=== PATIENT | female | born 1945 | race African-American/Black ===

== ENCOUNTER 2017-01-19 14:03 | Observation (INO) | payer MEDICARE ==
[~2017-01-19] VITALS: Ht 170.2 cm; Wt 62.6 kg
[2017-01-19] MEDS ORDERED: NITROGLYCERIN OINT 1GM/INCH UDPKT TD ONE (15:00)
[2017-01-19] MEDS ORDERED: ASPIRIN 81MG TABLET PO ONE (15:00)
[2017-01-19 15:33] LABS: BASOPHILS % 0.4 % (0.0-2.0); DIFFERENTIAL COMMENT 0; EOSINOPHILS % 0.4 % (0.0-5.0); HEMATOCRIT. 38.2 % (36.0-48.0); HEMOGLOBIN. 12.5 g/dL (12.0-16.0); LYMPHOCYTES % 25.5 % (20.0-50.0); MEAN CORPUSCULAR HEMOGLOBIN 25.8 pg (28.0-32.0); MEAN CORPUSCULAR HGB CONC 32.8 g/dL (31.0-37.0); MEAN CORPUSCULAR VOLUME 78.5 fL (81.0-99.0); MEAN PLATELET VOLUME 8.8 fl (7.4-10.4); MONOCYTES % 9.9 % (2.0-8.0); NEUTROPHILS % 63.8 % (40.0-76.0); PLATELET 292 x1000/uL (130-400); RED BLOOD CELL COUNT 4.86 mill/uL (4.2-5.4); RED CELL DISTRIBUTION WIDTH 15.7 % (11.6-14.6); WHITE BLOOD COUNT 11.2 x1000/uL (4.5-11.0)
[2017-01-19 15:34] LABS: PROTHROMBIN TIME 10.9 sec
[2017-01-19 15:37] LABS: ANION GAP 10; CARBON DIOXIDE 32 mEq/L (21-32); CHLORIDE 101 mEq/L (98-107); UREA NITROGEN BLOOD 13 mg/dL (7-21)
[2017-01-19 15:38] LABS: ALANINE AMINOTRANSFERASE 28 IU/L (13-61); ALBUMIN 3.3 g/dL (3.4-5.0); CALCIUM 8.9 mg/dL (8.5-10.1); INDEX HEMOLYSI 1 (1-3); INDEX ICTERIC 1 (1-4); INDEX LIPEMIC 1 (1-3); LIPASE 113 IU/L (73-393); eGFR > 60 mL/min (>60)
[2017-01-19 15:41] LABS: NT PRO B-TYPE NATRIURETIC PEP 198 pg/mL (5-125); TROPONIN I 0.02 ng/mL (0.00-0.04)
[2017-01-19] MEDS ORDERED: POTASSIUM CHLORIDE 20MEQ TABLET SR PO ONE (15:45)
[2017-01-19 21:00] VITALS: BP 157/83
[2017-01-19] MEDS ORDERED: BACL-141 PO (21:38)
[2017-01-19] MEDS ORDERED: RANI-84 PO (21:38)
[2017-01-19] MEDS ORDERED: AMLO10TA80 PO (21:38)
[2017-01-19] MEDS ORDERED: ASPI-1035 PO (21:38)
[2017-01-19] MEDS ORDERED: HYDR25TA PO (21:38)
[2017-01-19] MEDS ORDERED: MELO15TA13 PO (21:38)
[2017-01-19] MEDS ORDERED: ACETAMINOPHEN 325MG TABLET PO PRN (22:15)
[2017-01-19] MEDS ORDERED: TEMAZEPAM 15MG CAPSULE PO PRN (22:15)
[2017-01-19] MEDS ORDERED: KRILL OIL PO (22:28)
[2017-01-19] MEDS ORDERED: OLOP2.5D EACHEYE (22:28)
[2017-01-19] MEDS ORDERED: CYCL30DR EACHEYE (22:28)
[2017-01-19] MEDS ORDERED: LIDO30CR TP (22:28)
[2017-01-19] MEDS ORDERED: TRIA15OI8 TP (22:28)
[2017-01-19] MEDS ORDERED: STOOL SOFTENER PO (22:28)
[2017-01-19] MEDS ORDERED: GUAI1TBM14 PO (22:28)
[2017-01-19] MEDS ORDERED: BACLOFEN 10MG TABLET PO PRN (22:30)
[2017-01-19] MEDS ORDERED: MEDICATION NOT ON FORMULARY EA (Cyclosporine (Restasis) 1 DROP) EACHEYE SCH (22:30)
[2017-01-19] MEDS ORDERED: TRIAMCINOLONE ACETONIDE 0.5% OINT 15GM TOP PRN (22:30)
[2017-01-19] MEDS ORDERED: AMLODIPINE 10MG TABLET PO SCH (22:45)
[2017-01-19] MEDS ORDERED: DOCUSATE SODIUM 100MG CAPSULE PO PRN (22:45)
[2017-01-20] VITALS: BP 141/79
[2017-01-20 00:01] LABS: CREATINE KINASE MB FRACTION 0.6 ng/mL (0.5-3.6); TROPONIN I 0.02 ng/mL (0.00-0.04)
[2017-01-20 04:00] VITALS: BP 124/72
[2017-01-20 06:27] LABS: BASOPHILS % 0.4 % (0.0-2.0); DIFFERENTIAL COMMENT 0; EOSINOPHILS % 0.7 % (0.0-5.0); HEMATOCRIT. 39.8 % (36.0-48.0); HEMOGLOBIN. 13.3 g/dL (12.0-16.0); LYMPHOCYTES % 26.3 % (20.0-50.0); MEAN CORPUSCULAR HEMOGLOBIN 26.2 pg (28.0-32.0); MEAN CORPUSCULAR HGB CONC 33.4 g/dL (31.0-37.0); MEAN CORPUSCULAR VOLUME 78.6 fL (81.0-99.0); NEUTROPHILS % 61.6 % (40.0-76.0); PLATELET 304 x1000/uL (130-400); RED BLOOD CELL COUNT 5.07 mill/uL (4.2-5.4); WHITE BLOOD COUNT 10.6 x1000/uL (4.5-11.0)
[2017-01-20] MEDS ORDERED: OMEPRAZOLE 20MG CAPSULE EXTENDED RELEASE PO SCH (06:45)
[2017-01-20 06:55] LABS: ANION GAP 11; CALCIUM 8.9 mg/dL (8.5-10.1); CARBON DIOXIDE 30 mEq/L (21-32); CHLORIDE 104 mEq/L (98-107); INDEX HEMOLYSI 1 (1-3); INDEX ICTERIC 1 (1-4); INDEX LIPEMIC 1 (1-3); LDL CHOLESTEROL 112 mg/dL (5-100); TRIGLYCERIDE 128 mg/dL (0-150); UREA NITROGEN BLOOD 11 mg/dL (7-21)
[2017-01-20 07:02] LABS: CREATINE KINASE 79 IU/L (26-192); HDL CHOLESTEROL 79 mg/dL (40-59); TROPONIN I 0.02 ng/mL (0.00-0.04); eGFR > 60 mL/min (>60)
[2017-01-20 08:00] VITALS: BP 138/75
[2017-01-20] MEDS ORDERED: HYDROCHLOROTHIAZIDE 25MG TABLET PO SCH (09:00)
[2017-01-20] MEDS ORDERED: GUAIFENESIN/DM 600MG/30MG ER TAB 12HR PO PRN (09:00)
[2017-01-20] MEDS ORDERED: ENOXAPARIN 40MG/0.4ML SYR SUBCUT SCH (09:00)
[2017-01-20] MEDS ORDERED: NAPHAZOLINE HCL/PHENIR MAL OPHTH SOLN 15ML OP SCH (09:00)
[2017-01-20] MEDS ORDERED: POTASSIUM CHLORIDE 20MEQ TABLET SR PO SCH (09:00)
[2017-01-20] MEDS ORDERED: ASPIRIN 81MG EC TABLET PO SCH (09:00)
[2017-01-20] MEDS ORDERED: LIDOCAINE/PRILOCAINE CREAM 5 GM TUBE TOP PRN (09:00)
[2017-01-20 12:00] VITALS: BP 145/88
[2017-01-20] MEDS ORDERED: REGADENOSON 0.4 MG/5 ML IV SCH (12:45)
[2017-01-20] MEDS ORDERED: REGADENOSON 0.4 MG/5 ML IV ONE (13:33)
[2017-01-20] MEDS ORDERED: POLYVINYL ALCOHOL OPHTH DROPS 15ML OP PRN (14:00)
[2017-01-20 15:13] VITALS: BP 145/88
[2017-01-20] MEDS ORDERED: AMLODIPINE 10MG TABLET PO SCH (17:00)
[2017-01-20] MEDS ORDERED: ATORVASTATIN CALCIUM 10MG TABLET PO SCH (21:00)
== END 2017-01-20 15:35 | disposition home or self-care (01) ==
LOC: ER 15:42 → INTOOBSV 21:34 → 5WST 21:34
PROVIDERS: ADMIT Internal Medicine; ATTEND Internal Medicine
DX: R07.89 Other chest pain (principal); I10 Essential (primary) hypertension; E78.5 Hyperlipidemia, unspecified
CPT/HCPCS: 36415; 71010; 78452; 80048; 80053; 80061; 82550; 82553; 83690; 83880; 84443; 84484; 85025; 85610; 93005; 93017; 93306; 96372; 99285; A9500; G0378; J1650; J2785

== ENCOUNTER 2024-05-11 11:24 | Inpatient (IN) | payer MEDICAID, MEDICARE ==
[~2024-05-11] VITALS: Ht 167.6 cm; Wt 33.6 kg
[~2024-05-11 11:24] MED LIST: AMLO10TA80 PO; ASPI-1497 PO; BACL-141 PO; CYCL30DR EACHEYE; GUAI1TBM14 PO; HYDR25TA PO; KRILL OIL PO; LIDO30CR TP; MELO15TA13 PO; OLOP2.5D12 EACHEYE; RANI-655 PO; STOOL SOFTENER PO; TRIA15OI8 TP
[2024-05-11 12:01] LABS: HEMATOCRIT. 37.7 % (36.0-48.0); HEMOGLOBIN. 12.4 g/dL (12.0-16.0); MEAN CORPUSCULAR HEMOGLOBIN 26.2 pg (28.0-32.0); MEAN CORPUSCULAR HGB CONC 32.8 g/dL (31.0-37.0); MEAN CORPUSCULAR VOLUME 79.7 fL (81.0-99.0); MEAN PLATELET VOLUME 9.3 fl (7.4-10.4); PLATELET 364 x1000/uL (130-400); RED BLOOD CELL COUNT 4.73 mill/uL (4.2-5.4); RED CELL DISTRIBUTION WIDTH 16.7 % (11.6-14.6); WHITE BLOOD COUNT 30.3 x1000/uL (4.5-11.0)
[2024-05-11 12:08] LABS: CHLORIDE 96 mEq/L (98-107); POTASSIUM 3.1 mEq/L (3.5-5.1); SODIUM 127 mEq/L (136-145)
[2024-05-11 12:10] LABS: CARBON DIOXIDE 22 mEq/L (21-32)
[2024-05-11 12:15] LABS: CREATININE 1.8 mg/dL (0.6-1.0); GLUCOSE 119 mg/dL (70-105); UREA NITROGEN BLOOD 29 mg/dL (9-23)
[2024-05-11 12:16] LABS: ALANINE AMINOTRANSFERASE 22 IU/L (10-49); ASPARTATE AMINOTRANSFERASE 33 IU/L (<34)
[2024-05-11 12:17] LABS: ALBUMIN 4.1 g/dL (3.2-4.8); BILIRUBIN DIRECT 0.2 mg/dL (<=3.0); BILIRUBIN TOTAL 0.5 mg/dL (0.1-1.0); PROTEIN TOTAL 7.8 g/dL (6.0-8.3)
[2024-05-11 12:24] LABS: DIFFERENTIAL COMMENT 1
[2024-05-11] MEDS ORDERED: PIPERACILLIN/TAZO 3.375G/50ML 50 ML IV ONE (12:30)
[2024-05-11] MEDS: SODIUM CHLORIDE 0.9% 1000ML BAG (SEPSIS BOLUS) IV ONE (12:30)
[2024-05-11] MEDS: SODIUM CHLORIDE 0.9% 1,000 ML IV ONE (12:59)
[2024-05-11 13:04] LABS: PLATELET ESTIMATE NORMAL
[2024-05-11 13:05] LABS: ANISOCYTOSIS 1+; MICROCYTOSIS 1+
[2024-05-11] MEDS: VANCOMYCIN 1G PREMIX 200 ML IV ONE (13:05)
[2024-05-11] MEDS: METRONIDAZOLE 500 MG PREMIX 100 ML IV ONE ×2 (13:30→22:02)
[2024-05-11] MEDS ORDERED: CEFEPIME 2GM IN DEXT 5% 100ML IV ONE (13:30)
[2024-05-11 13:40] LABS: TROPONIN I HIGH SENSITIVITY 17 ng/L (3.0-34)
[2024-05-11 14:05] LABS: LACTIC ACID 3.6 mmol/L (0.4-2.0)
[2024-05-11] MEDS: ONDANSETRON HCL 4MG/2ML INJ IV ONE (14:53)
[2024-05-11] MEDS: KCL 10MEQ/50ML PREMIX 50 ML IV SCH (14:54)
[2024-05-11] MEDS ORDERED: GUAIFENESIN 200MG/10ML SUGAR FREE UDC PO PRN (16:45)
[2024-05-11] MEDS ORDERED: ACETAMINOPHEN 325MG TABLET PO PRN (16:45)
[2024-05-11] MEDS ORDERED: MAGNESIUM/ALUMINUM HYDROXIDE/SIMETHICONE 30ML UDC PO PRN (16:45)
[2024-05-11] MEDS ORDERED: ONDANSETRON HCL 4MG/2ML INJ IV PRN (16:45)
[2024-05-11] MEDS ORDERED: CLONIDINE 0.1MG TABLET PO PRN (16:45)
[2024-05-11] MEDS ORDERED: IPRATROPIUM/ALBUTEROL 0.5-3(2.5)MG/3ML NEB HHN PRN (16:45)
[2024-05-11] MEDS ORDERED: DOCUSATE SODIUM 100MG CAPSULE PO PRN (16:45)
[2024-05-11] MEDS: CEFEPIME 2GM/100ML 100 ML IV NR (16:47)
[2024-05-11] MEDS: ACETAMINOPHEN 325MG TABLET PO ONE (17:13)
[2024-05-11] MEDS ORDERED: HYDR25TA78 PO (17:41)
[2024-05-11] MEDS ORDERED: LOSA50TA41 PO (17:41)
[2024-05-11] MEDS ORDERED: LEVO50TA8 PO (17:41)
[2024-05-11 18:50] LABS: T4 FREE 1.23 ng/dL (0.89-1.76); THYROID STIMULATING HORMONE 0.52 uIU/mL (0.55-4.78)
[2024-05-11] MEDS: PIPERACILLIN/TAZO 3.375G/50ML 50 ML IV SCH (19:23)
[2024-05-11] MEDS: SODIUM CHLORIDE 0.9% 1,000 ML IV SCH (19:24)
[2024-05-11 20:51] LABS: CLARITY URINE CLOUDY (CLEAR); COLOR URINE YELLOW (YELLOW); GLUCOSE URINE NEGATIVE (NEGATIVE); KETONES URINE NEGATIVE (NEGATIVE); LEUKOCYTE ESTERASE URINE 2+ (NEGATIVE); NITRITE URINE NEGATIVE (NEGATIVE); OCCULT BLOOD URINE 1+ (NEGATIVE); PH URINE 6.5 (4.5-8.0); PROTEIN URINE 2+ (NEGATIVE); UROBILINOGEN URINE 0.2 E.U./dL (0.2-1.0)
[2024-05-11 21:03] LABS: *AMPHETAMINES SCREEN URINE NEGATIVE (NEGATIVE); *BARBITURATES SCREEN URINE NEGATIVE (NEGATIVE); *BENZODIAZEPINES SCREEN URINE NEGATIVE (NEGATIVE); *COCAINE SCREEN URINE NEGATIVE (NEGATIVE)
[2024-05-11 21:04] LABS: CANNABINOID URINE SCREEN PRESUMPTIVE POSITIVE (NEGATIVE); ECSTASY MDMA SCREEN URINE NEGATIVE (NEGATIVE); METHADONE URINE SCREEN NEGATIVE (NEGATIVE); OPIATES URINE SCREEN NEGATIVE (NEGATIVE); PHENCYCLIDINE URINE SCREEN NEGATIVE (NEGATIVE)
[2024-05-11 21:39] LABS: BACTERIA URINE 2+; SQUAMOUS EPITHELIAL CELL URINE 1+ /lpf (RARE/1+)
[2024-05-11 21:40] LABS: WBC URINE 50-100 /hpf (0-2)
[2024-05-11] MEDS: ACETAMINOPHEN 325MG TABLET PO PRN (22:04)
[2024-05-11 22:25] VITALS: BP 142/70; PULSE 89; RESP 18; TEMP 37.53
[2024-05-12 01:25] VITALS: BP 142/70; PULSE 89; RESP 18; TEMP 37.53
[2024-05-12 04:00] VITALS: BP 121/66; PULSE 82; RESP 18; TEMP 36.6696; O2SAT 98
[2024-05-12 06:30] LABS: HEMATOCRIT. 35.1 % (36.0-48.0); HEMOGLOBIN. 11.5 g/dL (12.0-16.0); MEAN CORPUSCULAR HEMOGLOBIN 26.4 pg (28.0-32.0); MEAN CORPUSCULAR HGB CONC 32.7 g/dL (31.0-37.0); MEAN CORPUSCULAR VOLUME 80.6 fL (81.0-99.0); MEAN PLATELET VOLUME 9.4 fl (7.4-10.4); PLATELET 229 x1000/uL (130-400); RED BLOOD CELL COUNT 4.35 mill/uL (4.2-5.4); RED CELL DISTRIBUTION WIDTH 17.3 % (11.6-14.6); WHITE BLOOD COUNT 27.6 x1000/uL (4.5-11.0)
[2024-05-12 06:37] LABS: CALCIUM 8.2 mg/dL (8.7-10.4); DIFFERENTIAL COMMENT 1; POTASSIUM 3.3 mEq/L (3.5-5.1)
[2024-05-12 06:43] LABS: CREATININE 1.5 mg/dL (0.6-1.0)
[2024-05-12] MEDS ORDERED: LEVOTHYROXINE SODIUM 50MCG TABLET PO SCH (06:45)
[2024-05-12 08:00] VITALS: BP 137/54; PULSE 68; RESP 18; TEMP 37.11408; O2SAT 97
[2024-05-12] MEDS ORDERED: KETOROLAC 15MG/ML VIAL IV PRN (08:00)
[2024-05-12] MEDS: PANTOPRAZOLE SODIUM 40 MG/VIAL IV SCH (08:24)
[2024-05-12] MEDS: POTASSIUM CHLORIDE 20MEQ/PACKET PO NR (11:31)
[2024-05-12 15:21] VITALS: BP 146/62; PULSE 81; RESP 18; TEMP 36.114; O2SAT 98
[2024-05-12] MEDS: AMLODIPINE 10MG TABLET PO SCH (16:27)
[2024-05-12] MEDS: ENOXAPARIN 30MG/0.3ML SYR SUBCUT SCH (16:27)
[2024-05-12 17:07] LABS: ANISOCYTOSIS 1+; PLATELET ESTIMATE NORMAL
[2024-05-12 17:08] LABS: HYPOCHROMASIA 1+; TARGET CELLS 1+
[2024-05-12 20:00] VITALS: BP 123/56; PULSE 79; RESP 20; TEMP 36.114; O2SAT 96
[2024-05-13 04:00] VITALS: BP 119/47; PULSE 67; RESP 20; TEMP 36.78072; O2SAT 97
[2024-05-13 07:15] LABS: CARBON DIOXIDE 21 mEq/L (21-32); CHLORIDE 106 mEq/L (98-107); POTASSIUM 3.7 mEq/L (3.5-5.1); SODIUM 134 mEq/L (136-145)
[2024-05-13 07:17] LABS: CALCIUM 8.3 mg/dL (8.7-10.4)
[2024-05-13 07:21] LABS: CREATININE 1.6 mg/dL (0.6-1.0); GLUCOSE 97 mg/dL (70-105)
[2024-05-13 07:22] LABS: UREA NITROGEN BLOOD 21 mg/dL (9-23)
[2024-05-13 08:00] VITALS: BP 124/58; PULSE 56; RESP 20; TEMP 36.50292
[2024-05-13 08:09] LABS: MEAN CORPUSCULAR HEMOGLOBIN 25.4 pg (28.0-32.0); MEAN CORPUSCULAR HGB CONC 32.3 g/dL (31.0-37.0); MEAN CORPUSCULAR VOLUME 78.8 fL (81.0-99.0); MEAN PLATELET VOLUME 9.8 fl (7.4-10.4); PLATELET 191 x1000/uL (130-400); RED BLOOD CELL COUNT 3.94 mill/uL (4.2-5.4); RED CELL DISTRIBUTION WIDTH 17.1 % (11.6-14.6); WHITE BLOOD COUNT 19.5 x1000/uL (4.5-11.0)
[2024-05-13 08:16] LABS: DIFFERENTIAL COMMENT 1
[2024-05-13 12:00] VITALS: BP 108/47; PULSE 57; RESP 20; TEMP 36.61404; O2SAT 98
[2024-05-13] MEDS ORDERED: LEVO750T68 MT (14:12)
[2024-05-13 16:00] VITALS: BP 126/57; PULSE 72; RESP 18; TEMP 36.55848; O2SAT 98
[2024-05-13 18:14] LABS: ANISOCYTOSIS 1+; MICROCYTOSIS 1+; PLATELET ESTIMATE NORMAL
[2024-05-13 18:16] VITALS: BP 127/57; PULSE 62; RESP 18; TEMP 36.3918; O2SAT 98
[2024-05-13 20:00] VITALS: BP 139/60; PULSE 82; RESP 20; TEMP 36.33624; O2SAT 99
[2024-05-13] MEDS: LEVOFLOXACIN 750MG PREMIX 150 ML IV NR (21:06)
[2024-05-14] VITALS: BP 132/62; PULSE 78; RESP 20; TEMP 36.28068; O2SAT 98
[2024-05-14 04:00] VITALS: BP 121/52; PULSE 74; RESP 20; TEMP 36.44736; O2SAT 96
[2024-05-14 06:24] LABS: POTASSIUM 3.3 mEq/L (3.5-5.1)
[2024-05-14 06:25] LABS: CALCIUM 7.7 mg/dL (8.7-10.4)
[2024-05-14 06:29] LABS: BASOPHILS % 0.1 % (0.0-2.0); CREATININE 1.5 mg/dL (0.6-1.0); DIFFERENTIAL COMMENT 0; EOSINOPHILS % 0.2 % (0.0-5.0); HEMATOCRIT. 30.7 % (36.0-48.0); HEMOGLOBIN. 10.2 g/dL (12.0-16.0); LYMPHOCYTES % 8.2 % (20.0-50.0); MEAN CORPUSCULAR HEMOGLOBIN 26.2 pg (28.0-32.0); MEAN CORPUSCULAR HGB CONC 33.2 g/dL (31.0-37.0); MEAN CORPUSCULAR VOLUME 79.1 fL (81.0-99.0); MEAN PLATELET VOLUME 9.7 fl (7.4-10.4); NEUTROPHILS % 79.5 % (40.0-76.0); PLATELET 170 x1000/uL (130-400); RED BLOOD CELL COUNT 3.87 mill/uL (4.2-5.4); RED CELL DISTRIBUTION WIDTH 17.4 % (11.6-14.6); WHITE BLOOD COUNT 14.9 x1000/uL (4.5-11.0)
[2024-05-14 08:00] VITALS: BP 135/59; PULSE 75; RESP 18; TEMP 36.61404; O2SAT 98
[2024-05-14] MEDS: POTASSIUM CHLORIDE 20MEQ TABLET SR PO NR (08:35)
[2024-05-14 12:00] VITALS: BP 160/63; PULSE 77; RESP 18; TEMP 36.55848; O2SAT 99
[2024-05-14] MEDS ORDERED: LEVOFLOXACIN 750MG PREMIX 150 ML IV SCH (13:00)
[2024-05-14] MEDS: LEVOFLOXACIN 250MG PREMIX 50 ML IV NR (14:09)
[2024-05-14 14:37] VITALS: BP 135/59; PULSE 75; TEMP 97.9; O2SAT 98
[2024-05-15] MEDS ORDERED: FAMOTIDINE 20MG/2ML VIAL IV SCH (09:00)
[2024-05-15] MEDS ORDERED: LEVOFLOXACIN 750MG PREMIX 150 ML IV SCH (11:00)
== END 2024-05-14 16:00 | disposition home or self-care (01) | DRG 871 ==
LOC: ER 11:24 → EDBEDREQ 15:55 → EDBEDREQTM 15:55 → 5WST 18:00 → 8WST 22:25
PROVIDERS: ADMIT Preventive Medicine Clinical Informatics; ATTEND Preventive Medicine Clinical Informatics
DX: A41.51 Sepsis due to Escherichia coli [E. coli] (principal); N17.0 Acute kidney failure with tubular necrosis; N39.0 Urinary tract infection, site not specified; E87.1 Hypo-osmolality and hyponatremia; E87.6 Hypokalemia; E86.0 Dehydration; E05.80 Other thyrotoxicosis without thyrotoxic crisis or storm; R65.20 Severe sepsis without septic shock; R16.0 Hepatomegaly, not elsewhere classified; F17.210 Nicotine dependence, cigarettes, uncomplicated; I11.9 Hypertensive heart disease without heart failure; K22.0 Achalasia of cardia; K57.30 Diverticulosis of large intestine without perforation or abscess without bleeding; Z79.899 Other long term (current) drug therapy
CPT/HCPCS: 36415; 74176; 80048; 80061; 80076; 80305; 81003; 83605; 83735; 84100; 84145; 84439; 84443; 84484; 85025; 87077; 87186; 93005; 99291; C1893; J0692; J1650; J1956; J2405; J2470; J2543; J3370; J3480; J3490; J7030

== ENCOUNTER 2024-12-17 10:11 | Emergency (ER) | payer BC, MEDICAID, MEDICARE ==
[~2024-12-17] VITALS: Ht 170.2 cm; Wt 50.0 kg
[~2024-12-17 10:11] MED LIST changes: +LEVO50TA8 PO; +LEVO750T68 MT; +LOSA50TA41 PO
[2024-12-17 10:16] VITALS: O2SAT 100
[2024-12-17 10:18] VITALS: BP 103/82; PULSE 71; RESP 16; TEMP 37; O2SAT 100
[2024-12-17 10:44] LABS: BASOPHILS % 0.7 % (0.0-2.0); EOSINOPHILS % 0.4 % (0.0-5.0); HEMATOCRIT. 35.8 % (36.0-48.0); HEMOGLOBIN. 11.8 g/dL (12.0-16.0); MEAN CORPUSCULAR HEMOGLOBIN 26.4 pg (28.0-32.0); MEAN PLATELET VOLUME 8.9 fl (7.4-10.4); MONOCYTES % 8.8 % (2.0-8.0); NEUTROPHILS % 71.1 % (40.0-76.0); PLATELET 453 x1000/uL (130-400); RED BLOOD CELL COUNT 4.48 mill/uL (4.2-5.4); RED CELL DISTRIBUTION WIDTH 18.4 % (11.6-14.6); WHITE BLOOD COUNT 8.5 x1000/uL (4.5-11.0)
[2024-12-17 11:02] LABS: CHLORIDE 100 mEq/L (98-107); SODIUM 136 mEq/L (136-145)
[2024-12-17 11:03] LABS: CALCIUM 9.7 mg/dL (8.7-10.4); CARBON DIOXIDE 28 mEq/L (21-32)
[2024-12-17 11:05] VITALS: TEMP 98
[2024-12-17] MEDS: ACETAMINOPHEN 325MG TABLET PO ONE (11:05)
[2024-12-17] MEDS: FAMOTIDINE 20MG TABLET PO ONE (11:05)
[2024-12-17 11:08] LABS: CREATININE 1.3 mg/dL (0.6-1.0); GLUCOSE 87 mg/dL (70-105)
[2024-12-17 11:09] LABS: TROPONIN I HIGH SENSITIVITY 7 ng/L (3.0-34); UREA NITROGEN BLOOD 16 mg/dL (9-23)
[2024-12-17 11:10] LABS: ALANINE AMINOTRANSFERASE 25 IU/L (10-49); ALBUMIN 4.4 g/dL (3.2-4.8); ASPARTATE AMINOTRANSFERASE 37 IU/L (<34)
[2024-12-17 11:11] LABS: BILIRUBIN TOTAL 0.3 mg/dL (0.1-1.0); PROTEIN TOTAL 8.3 g/dL (6.0-8.3)
[2024-12-17 11:25] LABS: BILIRUBIN DIRECT < 0.1 mg/dL (<=3.0)
[2024-12-17 14:14] LABS: TROPONIN I HIGH SENSITIVITY 8 ng/L (3.0-34)
== END 2024-12-17 14:47 | disposition home or self-care (01) ==
LOC: ER 10:11
DX: R10.13 Epigastric pain (principal); I10 Essential (primary) hypertension; Z79.82 Long term (current) use of aspirin; Z79.890 Hormone replacement therapy; Z79.899 Other long term (current) drug therapy
CPT/HCPCS: 80076; 80048; 83690; 85025; 84484; 36415; 71045; 76705; 93005; 99285; Z7610; A4606